=== PATIENT | female | born 1970 | race Caucasian/White ===

== ENCOUNTER 2019-07-28 17:49 | Emergency (ER) | payer MEDICAID, SELFPAY ==
[2019-07-28 17:53] VITALS: BP 157/81; PULSE 124; RESP 18; TEMP 37.5; O2SAT 98; BMI 40.3
--- NOTE | 2019-07-28 18:24 | CT_ITS ---
STUDY: CT BRAIN WITHOUT CONTRAST REASON FOR EXAM: Female, 48 years old. SEIZURE AND SYNCOPAL EPISODE RADIATION DOSAGE (If Supplied By Facility): CTDIvol = ( 44.99 ) mGy, DLP = ( 829.85 ) mGycm TECHNIQUE: Transaxial CT imaging of the brain was performed without administration of intravenous contrast material. Individualized dose optimization techniques were used for this CT. COMPARISON: No relevant priors. FINDINGS: Normal soft tissue structures. Normal calvarium. Normal size ventricles and extra-axial spaces for the patient''s age. Normal white matter tracts of the cerebral hemispheres. Normal basal ganglia and thalami. Normal brainstem. Normal cerebellum. There is no intracranial hemorrhage. There are no findings of an acute ischemic infarction. Left maxillary mucous retention cyst versus polyp is present. CT/Brain/Head without Contrast IMPRESSION: No evidence of acute intracranial bleed, mass or ischemia. Electronically Signed: Teddy Corona DO at 20:29 EDT , Service support ,
--- NOTE | 2019-07-28 18:29 | ED.VISSUMM ---
- ER Visit Summary Date of Service: 07/28/19 Chief Complaint: Seizure? History of Present Illness: The patient is a [address] Xiao Peres. She was driving with her daughter when the daughter says that she began seeing things that were not making sense. She turned and looked out the back window and then had the abrupt onset of sonorous respirations and drooling. Daughter reports there was a small amount of blood in the drool. Her right arm was flexed and her eyes were closed. She does not respond. This lasted approximately 10 minutes. There is no tonic-clonic activity. Upon EMS arrival the patient was confused and combative. Upon arrival to the emergency department the patient is clearly upset, but is back to her baseline. She does not have any history of seizures. Review of systems: General: No fever, chills, cold sweats. Cardiovascular: No chest pain, palpitations. Respiratory: No cough, shortness of breath, dyspnea on exertion. Gastrointestinal: No abdominal pain, nausea, vomiting, diarrhea, melena, or hematochezia. Genitourinary: No dysuria, frequency, hematuria. Skin: No rash. Neuro: No headache, numbness, weakness. Physical Examination: Vitals: Stable. Afebrile. General: Well-nourished and well-developed. Head: Normocephalic atraumatic. Neck: Supple, no lymphadenopathy. No JVD. Nontender. Cardiovascular: Regular rate and rhythm. No murmurs. Respiratory: No respiratory distress. Clear to auscultation bilaterally. Abdominal: Soft, nontender, nondistended, normal bowel sounds. No guarding, rebound, or peritoneal signs. Back: Nontender. Extremities: Nontender, no edema. Skin: Normal color, no rash. Neurologic: Alert and oriented ?3. Cranial nerves II through XII are intact. Normal strength and sensation. Psych: Depressed and tearful. Test Results: CBC shows segment neutrophils of 9 lymphocytes 15. Chem-7 shows a glucose of 200. Alcohol is negative. Tox is negative. Clinical Impression(s) from Imaging Studies Brain CT 07/28/19 18:24 IMPRESSION: No evidence of acute intracranial bleed, mass or ischemia. Electronically Signed: Teddy Corona DO at 20:29 EDT , Service support , Emergency Department Course and Treatment: Patient was given a dose of Ativan IV. She has had no further seizure activity while here. She is resting comfortably. Treatment Plan: Patient be discharged instructions to follow-up with a neurologist near her home in [place]. I do not have the name of the referral to give her in [place]. She is instructed not to drive until cleared by the neurologist. Return to the emergency department for any worsening symptoms. Disposition: To home in improved and stable condition. Impression: 1. Seizure, new onset. This note was generated with [employer] dictation software. It may contain incorrect words, spelling, and punctuation that were not noted in review of the chart prior to signing ED Disposition - Plan for ED Patient: Disposition: Home or Assisted Living Instructions: ED Seizure New Onset Unk Cause Referrals: Melissa Martinez MD [Primary Care Provider] - Additional Instructions: Follow-up with a neurologist as soon as possible. You are NOT allowed to drive until cleared by neurology.
[2019-07-28] MEDS: 0.9% Normal Saline 1,000 ML 1000 ML IV (18:55)
[2019-07-28] MEDS: LORazepam 2 MG/ML Syringe 1 MG IV (18:58)
[2019-07-28 19:06] LABS: Absolute Lymphocyte Count 1.48 X10^3/uL (0.83-4.51); Absolute Neutrophil Count 7.5 X10^3/uL (2.0-7.7); Basophil# 0.04 X10^3/uL; Basophil% 0.4 % (0-1); Eosinophil# 0.05 X10^3/uL; Eosinophils% 0.5 % (0-5); Hematocrit 42.1 % (37-47); Hemoglobin 13.8 g/dL (12.0-15.0); Lymphocyte # 1.48 X10^3/ul (4.0); Lymphocyte % 15.4 % (19-41); Mean Corp Hgb Conc 32.8 g/dL (32-36); Mean Corpuscular Hgb 28.2 pg (27.0-32.0); Mean Corpuscular Volume 85.9 fL (81-99); Mean Platelet Vol. 9.8 fl (6.2-12.0); Monocyte# 0.46 X10^3/uL; Monocyte% 4.8 % (0-10); NRBC Flagged by Analyzer 0 % (0-5); Neutrophil # 7.53 X10^3/uL (2.7-7.7); Neutrophil % 78.5 % (47-70); Platelet Count 221 K/mm3 (150-450); RBC Distribution Width CV 14.9 % (11.6-14.6); RBC Distribution Width SD 45.4 fl (35.1-43.9); White Blood Count 9.6 K/mm3 (4.4-11.0)
[2019-07-28 19:21] LABS: Anion Gap 7 (5-15); BUN 12 mg/dL (7-18); BUN/Creat Ratio 13.4 RATIO (10-20); Chloride 106 mmol/L (98-107); EST Glomerular Filtration Rate 71 mL/min (>60); Est Glom Filt Rate - Afr Amer 86 mL/min (>60); Estimated Creatinine Clearance 77.11 ml/min; Glucose 200 mg/dL (74-106); Potassium 3.9 mmol/L (3.5-5.1); Sodium Level 137 mmol/L (136-145)
[2019-07-28 19:40] LABS: Alcohol, Blood (Medical)-Serum < 3.0 mg/dL
[2019-07-28 19:50] VITALS: BP 153/81; PULSE 125; RESP 14; O2SAT 96
[2019-07-28 20:48] LABS: Amphetamine Urine VISTA NEGATIVE (<1000 ng/mL); Barbiturate Urine VISTA NEGATIVE (< 200 ng/mL); Benzodiazepine Urine VISTA NEGATIVE (< 200 ng/mL); Cocaine Urine VISTA NEGATIVE (< 300 ng/mL); Ecstacy Urine VISTA NEGATIVE (< 500 ng/mL); Methadone Urine VISTA NEGATIVE (< 300 ng/mL); PCP Urine VISTA NEGATIVE (< 25 ng/mL); THC Urine VISTA NEGATIVE (< 50 ng/mL); Vista UDS pH Range 6
[2019-07-28 21:00] VITALS: BP 153/58; PULSE 112; RESP 12; O2SAT 95
[2019-07-28 21:58] VITALS: BP 158/53; PULSE 112; RESP 18; O2SAT 98
== END 2019-07-28 22:09 | disposition home or self-care (01) ==
PROVIDERS: Emergency Provider Emergency Medicine; PCP Family Medicine
DX: R56.9 Unspecified convulsions (principal); F32.9 Major depressive disorder, single episode, unspecified
CPT/HCPCS: 70450; 80048; 80307; 80320; 85025; 96361; 96374; 99285; A4216; G0480